=== PATIENT | female | born 1980 | race Native Hawaiian/Other Pacific Islander ===

== ENCOUNTER 2017-04-18 12:09 | Emergency (ER) | payer OTHER, MEDICAID ==
[2017-04-18 12:24] VITALS: BP 141/80; PULSE 102; RESP 18; TEMP 98.1; O2SAT 98; BMI 30.2
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
== END 2017-04-18 13:42 | disposition home or self-care (01) ==
LOC: C.ER 12:09
DX: Z04.41 Encounter for examination and observation following alleged adult rape (principal)